=== PATIENT | female | born 1955 | race Two or more races ===

== ENCOUNTER → 2017-07-03 | Outpatient (CLI) | payer OTHER ==
[~2017-07-03] VITALS: Ht 152.4 cm; Wt 63.5 kg
[~2017-07-03] MED LIST: ALLEGRA ALLERG180 MG PO; CELEBREX200MG PO; CELEXA20 MG; CLONAZEPAM1 M1; FLONASE16 GM NS; GILTUSS TR TAB1 EACH PO; PROTECT PLUS A1 EACH PO; SYNTHROID88 MCG; TESSALON PERLE100 MG PO; TOBREX5 ML OP; TRAM1TAB98 PO; VALTREX1000 MG; ZITHROMAX TRI-500 MG PO; ZYRTEC10 MG PO
== END | disposition home or self-care (01) ==
LOC: PPHC 10:35
DX: J11.1 Influenza due to unidentified influenza virus with other respiratory manifestations (principal); R50.9 Fever, unspecified; R05 Cough; J06.9 Acute upper respiratory infection, unspecified; R51 Headache

== ENCOUNTER 2017-07-08 17:44 | Outpatient (CLI) | payer OTHER | END 2017-07-08 18:32 | disposition home or self-care (01) | LOC: LAB 17:44 | DX: J11.1 Influenza due to unidentified influenza virus with other respiratory manifestations (principal) ==

== ENCOUNTER 2017-10-08 15:54 | Outpatient (CLI) | payer OTHER | END 2017-10-08 16:17 | disposition home or self-care (01) | LOC: RAD 501 15:54 | DX: R05 Cough (principal) ==

== ENCOUNTER 2018-10-07 17:13 | Emergency (ER) | payer OTHER ==
[~2018-10-07] VITALS: Ht 160 cm; Wt 62.6 kg
[2018-10-07] MEDS ORDERED: ORPHENADRINE C100 MG PO (19:36)
[2018-10-07] MEDS ORDERED: KETO10TA2 PO (19:36)
== END 2018-10-07 19:45 | disposition home or self-care (01) ==
LOC: ER 17:13
DX: S00.83XA Contusion of other part of head, initial encounter (principal); S80.02XA Contusion of left knee, initial encounter; S80.01XA Contusion of right knee, initial encounter; S10.83XA Contusion of other specified part of neck, initial encounter; W18.39XA Other fall on same level, initial encounter; Y93.89 Activity, other specified; Y92.488 Other paved roadways as the place of occurrence of the external cause; Y99.8 Other external cause status

== ENCOUNTER 2018-10-20 11:35 | Outpatient (CLI) | payer OTHER ==
[~2018-10-20 11:35] MED LIST changes: +KETO10TA2 PO; +ORPHENADRINE C100 MG PO
== END 2018-10-20 11:52 | disposition home or self-care (01) ==
LOC: SONOGRAMA 11:35
DX: M75.102 Unspecified rotator cuff tear or rupture of left shoulder, not specified as traumatic (principal)

== ENCOUNTER 2019-11-01 08:56 | Outpatient (CLI) | payer OTHER | END 2019-11-01 09:06 | disposition home or self-care (01) | LOC: SONOGRAMA 08:56 | DX: R10.84 Generalized abdominal pain (principal) ==

== ENCOUNTER 2020-04-23 10:41 | Emergency (ER) | payer OTHER ==
[~2020-04-23] VITALS: Ht 160 cm; Wt 62.6 kg
[2020-04-23] MEDS ORDERED: CALCIUM500 M2 (11:08)
[2020-04-23] MEDS ORDERED: MUPIROCIN22 GM TOP (16:04)
[2020-04-23] MEDS ORDERED: KETO10TA2 PO (16:04)
== END 2020-04-23 16:17 | disposition home or self-care (01) ==
LOC: ER 10:41
DX: M79.672 Pain in left foot (principal); M25.572 Pain in left ankle and joints of left foot; Z03.818 Encounter for observation for suspected exposure to other biological agents ruled out

== ENCOUNTER 2020-12-03 07:54 | Outpatient (CLI) | payer OTHER ==
[~2020-12-03 07:54] MED LIST changes: +CALCIUM500 M2; +MUPIROCIN22 GM TOP
== END 2020-12-03 07:56 | disposition home or self-care (01) ==
LOC: NUCLEAR 07:54
PROVIDERS: ATTEND Internal Medicine
DX: M15.0 Primary generalized (osteo)arthritis (principal); M85.80 Other specified disorders of bone density and structure, unspecified site; M81.0 Age-related osteoporosis without current pathological fracture; M15.8 Other polyosteoarthritis
CPT/HCPCS: 77080; 78306; A9503

== ENCOUNTER 2021-03-15 15:08 | Outpatient (CLI) | payer OTHER | END 2021-03-15 15:22 | disposition home or self-care (01) | LOC: RAD 15:08 | PROVIDERS: ATTEND Internal Medicine | DX: M13.89 Other specified arthritis, multiple sites (principal) ==

== ENCOUNTER 2021-04-19 09:37 | Outpatient (CLI) | payer OTHER | END 2021-04-19 09:45 | disposition home or self-care (01) | LOC: TOM 09:37 | PROVIDERS: ATTEND Internal Medicine | DX: R22.1 Localized swelling, mass and lump, neck (principal) ==

== ENCOUNTER 2021-08-30 14:17 | Outpatient (CLI) | payer OTHER | END 2021-08-30 14:23 | disposition home or self-care (01) | LOC: SONOGRAMA 14:17 | PROVIDERS: ATTEND Otolaryngology | DX: R22.1 Localized swelling, mass and lump, neck (principal) ==

== ENCOUNTER 2022-02-14 13:46 | Emergency (ER) | payer OTHER ==
[~2022-02-14] VITALS: Ht 160 cm; Wt 65.3 kg
[2022-02-14] MEDS ORDERED: EFFEXOR XR75 MG PO (14:13)
[2022-02-14] MEDS ORDERED: SYNTHROID75 MCG PO (14:14)
[2022-02-14] MEDS ORDERED: ZETIA10 MG PO (14:15)
== END 2022-02-14 20:21 | disposition home or self-care (01) ==
LOC: ER 13:46
DX: F41.8 Other specified anxiety disorders (principal); K59.01 Slow transit constipation; R14.2 Eructation; D17.71 Benign lipomatous neoplasm of kidney; K21.9 Gastro-esophageal reflux disease without esophagitis; Z88.8 Allergy status to other drugs, medicaments and biological substances

== ENCOUNTER 2022-06-18 11:32 | Outpatient (CLI) | payer OTHER ==
[~2022-06-18 11:32] MED LIST changes: +EFFEXOR XR75 MG PO; +SYNTHROID75 MCG PO; +ZETIA10 MG PO
== END 2022-06-18 11:42 | disposition home or self-care (01) ==
LOC: RAD 11:32
PROVIDERS: ATTEND Internal Medicine
DX: U07.1 COVID-19 (principal); J44.1 Chronic obstructive pulmonary disease with (acute) exacerbation

== ENCOUNTER 2022-06-19 13:55 | Emergency (ER) | payer OTHER ==
[~2022-06-19] VITALS: Ht 160 cm; Wt 64.4 kg
== END 2022-06-19 17:51 | disposition home or self-care (01) ==
LOC: ER 13:55
DX: B34.9 Viral infection, unspecified (principal); Z88.8 Allergy status to other drugs, medicaments and biological substances; Z86.16 Personal history of COVID-19

== ENCOUNTER 2022-12-11 14:02 | Outpatient (CLI) | payer OTHER | END 2022-12-11 14:09 | disposition home or self-care (01) | LOC: RAD 14:02 | DX: M54.2 Cervicalgia (principal); M54.6 Pain in thoracic spine; M54.50 Low back pain, unspecified; M25.551 Pain in right hip; M25.552 Pain in left hip ==

== ENCOUNTER 2023-05-15 09:41 | Outpatient (CLI) | payer OTHER | END 2023-05-15 09:52 | disposition home or self-care (01) | LOC: TOM 09:41 | PROVIDERS: ATTEND Internal Medicine Gastroenterology | DX: K64.0 First degree hemorrhoids (principal); Z12.11 Encounter for screening for malignant neoplasm of colon; Z80.0 Family history of malignant neoplasm of digestive organs ==

== ENCOUNTER 2024-11-25 10:59 | Outpatient (CLI) | payer OTHER ==
[~2024-11-25 10:59] MED LIST changes: +DEXILANT60 MG; +NORFLEX100MG PO
== END 2024-11-25 12:17 | disposition home or self-care (01) ==
LOC: RAD 10:59
PROVIDERS: ATTEND Physical Medicine & Rehabilitation
DX: D16.4 Benign neoplasm of bones of skull and face (principal); Q75.8 Other specified congenital malformations of skull and face bones; M54.2 Cervicalgia; M70.61 Trochanteric bursitis, right hip

== ENCOUNTER → 2024-11-30 08:19 | Outpatient (CLI) | payer OTHER | END | disposition home or self-care (01) | LOC: NUCLEAR 08:19 | DX: M81.0 Age-related osteoporosis without current pathological fracture (principal) ==

== ENCOUNTER 2024-12-23 12:42 | Outpatient (CLI) | payer OTHER | END 2024-12-23 12:48 | disposition home or self-care (01) | LOC: SONOGRAMA 12:42 | PROVIDERS: ATTEND Obstetrics & Gynecology Gynecology | DX: N64.4 Mastodynia (principal) ==